=== PATIENT | female | born 1995 | race Caucasian/White ===

== ENCOUNTER 2018-04-10 22:49 | Emergency (ER) | payer MEDICAID ==
[~2018-04-10] VITALS: Ht 167.6 cm; Wt 136.5 kg
[2018-04-10 22:59] VITALS: BP 144/84
--- NOTE | 2018-04-10 23:06 | NUR ---
PT AMBULATED TO BED 3 WITH VSS.
--- NOTE | 2018-04-10 23:15 | NUR ---
PT BIB SELF FOR EAR PAIN X5 HOURS. PT REPORTS COMING [place] AND HAS HAD PRESSURE PAIN IN R HEAR AT 7/10 THAT HAS CAUSED A HEAD ACHE. PT ALSO REPORTS FEELING DIZZY AND NAUSEA. PT AAOX4, COOPERATIVE, WELL GROOMED, AND STEADY GAIT. NO VISIBLE REDNESS OR SWELLING AROUD EAR. VSS. ER MD TO SEE PT. SAFETY PRECAUTIONS IN PLACE, WILL CONTINUE TO MONITOR.
[2018-04-11] VITALS: BP 137/82
--- NOTE | 2018-04-11 | NUR ---
Patient discharged with v/s stable. Written and verbal after care instructions given and explained. Patient alert, oriented and verbalized understanding of instructions. Ambulatory with steady gait. All questions addressed prior to discharge. ID band removed. Patient advised to follow up with PMD. Rx of AMOXICILLIN 500MG, MOTRIN 800MG AND PROMETHAZINE HYDROCHLORIDE/DEXTROMETHORPHAN HYDROBROMIDE 6.25 MG-15MG/5ML given. Patient educated on indication of medication including possible reaction and side effects. Opportunity to ask questions provided and answered.
== END 2018-04-11 | disposition home or self-care (01) ==
LOC: MED 22:49
DX: H66.91 Otitis media, unspecified, right ear (principal); J02.9 Acute pharyngitis, unspecified
CPT/HCPCS: 99283

== ENCOUNTER 2019-05-11 14:21 | Emergency (ER) | payer MEDICAID, OTHER ==
[~2019-05-11] VITALS: Ht 167.6 cm; Wt 126.1 kg
[2019-05-11 14:41] VITALS: BP 134/67
--- NOTE | 2019-05-11 14:45 | NUR ---
PATIENT AMBULATED TO BED 3
--- NOTE | 2019-05-11 14:46 | NUR ---
Pt ambulated to restroom to provide urine sample
--- NOTE | 2019-05-11 14:55 | NUR ---
23 Y/O FEMALE PRESENTS WITH LEFT SIDED PELVIC/ LOWER ABD PAIN RADIATING TO LEFT SIDE/BACK, 10/10 PAIN BEGINNING ON WEDNESDAY. PT REPORTS SHE WENT TO URGENT CARE YESTERDAY AND RECEIVED PAIN MEDS BUT PAIN IS WORSE TODAY. PT DENIES INJURY/ N/V/D/ CHILLS OR FEVER. BOWEL SOUNDS NORMO ACTIVE IN ALL QUADRANTS. RESP EVEN AND UNLABORED. LUNG SOUNDS CLEAR IN ALL QUADRANTS. SKIN COOL/DRY. AAOX4. CAP REFILL <3. PMH: CYST ON RIGHT OVARY NKA
[2019-05-11] MEDS ORDERED: NACL 0.9% 1,000 ML IV SCH (15:16)
[2019-05-11] MEDS ORDERED: ONDANSETRON 4 MG/2 ML VIAL IVP ONE (15:20)
[2019-05-11] MEDS ORDERED: KETOROLAC 30 MG/ML VIAL IVP ONE (15:20)
[2019-05-11 15:37] LABS: APPEARANCE,URINE CLEAR (CLEAR); BILIRUBIN,URINE NEGATIVE (NEGATIVE); BLOOD, URINE NEGATIVE (NEGATIVE); COLOR,URINE YELLOW (YELLOW); LEUKOCYTE ESTERASE ,URINE TRACE (NEGATIVE); NITRITE, URINE NEGATIVE (NEGATIVE); PH,URINE 5.5 (5.0-9.0); UGLUCOSE NEGATIVE (NEGATIVE)
--- NOTE | 2019-05-11 15:38 | NUR ---
PT TO CT VIA RADHA
[2019-05-11 15:43] LABS: BASOPHILS # (AUTO) 0.1 K/uL (0.00-0.22); BASOPHILS % (AUTO) 0.9 % (0.0-2.0); EOSINOPHILS # (AUTO) 0.3 K/uL (0-0.4); EOSINOPHILS % (AUTO) 2.9 % (0.0-4.0); HEMATOCRIT 41.7 % (36-48); HEMOGLOBIN 13.7 g/dL (12.0-16.0); LYMPHOCYTES # (AUTO) 2.5 K/uL (2.5-16.5); LYMPHOCYTES % (AUTO) 27.7 % (20.5-51.1); MEAN CORPUSCULAR HEMOGLOBIN 27 pg (27-31); MEAN CORPUSCULAR HGB CONC 33 g/dL (33-37); MEAN CORPUSCULAR VOLUME 83.7 fL (80-94); MONOCYTES # (AUTO) 0.5 K/uL (0.8-1.0); MONOCYTES % (AUTO) 5.5 % (1.7-9.3); NEUTROPHILS # (AUTO) 5.7 K/uL (1.8-7.7); PLATELET COUNT (AUTO) 259 K/uL (140-450); RED BLOOD CELL COUNT(AUTO) 4.99 MIL/uL (4.20-5.40); RED CELL DISTRIBUTION WIDTH 13.9 % (11.6-13.7)
[2019-05-11 15:52] LABS: RBC,URINE 0 /HPF (0-5); WBC,URINE 0-5 /HPF (0-5)
[2019-05-11 16:08] LABS: ALBUMIN 4.2 g/dL (3.4-5.0); CARBON DIOXIDE 26.1 mmol/L (21-32); CREATININE 0.6 mg/dL (0.6-1.3); POTASSIUM 4.1 mmol/L (3.5-5.1)
[2019-05-11] MEDS ORDERED: MORPHINE SULFATE 4 MG/ML SYR IVP ONE (16:20)
--- NOTE | 2019-05-11 16:44 | NUR ---
PT REPORTS DECREASE IN ABD PAIN, RATES PAIN 4/10
[2019-05-11 17:03] VITALS: BP 110/68
--- NOTE | 2019-05-11 17:03 | NUR ---
Patient discharged with v/s stable. Written and verbal after care instructions given and explained. Patient alert, oriented and verbalized understanding of instructions. Ambulatory with steady gait. All questions addressed prior to discharge. ID band removed. Patient advised to follow up with PMD. Rx of MOTRIN, ZOFRAN, NORCO given. Patient educated on indication of medication including possible reaction and side effects. Opportunity to ask questions provided and answered.
--- NOTE | 2019-05-12 12:04 | NUR ---
Late entry. COnfirmed with RN that 0.9 NS IV completed at 1630
== END 2019-05-11 17:03 | disposition home or self-care (01) ==
LOC: MED 14:21
DX: R10.32 Left lower quadrant pain (principal); R11.0 Nausea
CPT/HCPCS: 36415; 74176; 80053; 81001; 81025; 83690; 85025; 96374; 96375; 99284; J1885; J2270; J2405; J7030

== ENCOUNTER 2021-05-25 08:00 | Emergency (ER) | payer OTHER ==
[~2021-05-25] VITALS: Ht 167.6 cm; Wt 131.5 kg
[2021-05-25 08:05] VITALS: BP 126/76
--- NOTE | 2021-05-25 08:09 | NUR ---
PT W/C ASSISTED TO ER BED 11.
--- NOTE | 2021-05-25 08:22 | NUR ---
25 y/o female presents to ed with low back pain for 3 days, pain worsened this morning. denies nausea, vomiting, diarrhea. skin is pink/warm/dry. a&o x4 pt states she is unable to ambulate. lungs clear bl, heart rate even and regular. pt denies dysuria, hematuria, urinary frequency or retention, or anyone sick in the household with the same symptoms. pt denies any fever, cp, sob, or cough at this time. pt states pain is 10/10 at this time. vss. patient positioned for comfort. hob elevated. bed down. ermd made aware of pt. pmh: denies nka
[2021-05-25] MEDS ORDERED: predniSONE 20 MG TAB PO ONE (08:30)
[2021-05-25] MEDS ORDERED: CYCLOBENZAPRINE 10 MG TAB PO ONE (08:30)
[2021-05-25] MEDS ORDERED: LIDOCAINE 5% 1 EA PATCH TP SCH (08:30)
[2021-05-25] MEDS ORDERED: IBUPROFEN 800 MG TAB PO ONE (08:30)
[2021-05-25] MEDS ORDERED: LID5T TP (08:34)
[2021-05-25] MEDS ORDERED: IBUP-2213 PO (08:34)
[2021-05-25] MEDS ORDERED: CYCL-711 PO (08:34)
[2021-05-25] MEDS ORDERED: EMLAC TP (08:34)
[2021-05-25] MEDS ORDERED: ACET-2619 PO (08:34)
--- NOTE | 2021-05-25 08:38 | NUR ---
applesauce given with ibuprofen to prevent gi upset
[2021-05-25] MEDS ORDERED: oxyCODONE/APAP 5/325 MG 1 TAB TAB PO ONE (08:45)
--- NOTE | 2021-05-25 09:10 | NUR ---
Patient discharged with v/s stable. Written and verbal after care instructions given and explained. Patient alert, oriented and verbalized understanding of instructions. Wheel Chair Assisted with spouse to car. All questions addressed prior to discharge. ID band removed. Patient advised to follow up with PMD. Rx of tylenol, cyclobenxaprine, lidocaine cream, ibuprofen, lidocaine patch (sent) given. Patient educated on indication of medication including possible reaction and side effects. Opportunity to ask questions provided and answered. work note given
[2021-05-25 09:11] VITALS: BP 126/76
== END 2021-05-25 09:11 | disposition home or self-care (01) ==
LOC: MED 08:00
DX: M62.838 Other muscle spasm (principal); M62.830 Muscle spasm of back; Z79.899 Other long term (current) drug therapy
CPT/HCPCS: 99284; J7512